=== PATIENT | female | born 1955 | race Asian ===

== ENCOUNTER → 2021-07-07 09:34 | Outpatient (CLI) | payer OTHER, SELFPAY ==
[2021-07-07 12:51] LABS: COVID19 -Nasal RAPID Negative (Negative)
== END ==
PROVIDERS: PCP Student in an Organized Health Care Education/Training Program; Visit Provider Family Medicine Sleep Medicine
DX: Z20.822 Contact with and (suspected) exposure to COVID-19 (principal)
CPT/HCPCS: 87635; C9803

== ENCOUNTER 2021-07-10 09:17 | Day surgery (SDC) | payer OTHER, SELFPAY ==
--- NOTE | 2021-07-10 | PATH_ITS ---
[facility] Accession Number: [id number] No. of containers..01 Tissue . 01 Material submitted: . colon - DESCENDING COLON POLYP . 02 Diagnosis: Descending Colon Polyp, Biopsy: Small fragment of colonic mucosa with cautery artifact. No neoplasm identified. MRV 07/13/2021 1047 Local . 02 Electronically signed: . Juan Luis Greenberg MD, PhD, Pathologist NPI- [id number] . 01 Gross description: . DESCENDING COLON POLYP: Received in formalin is 1 fragment(s) of headley, soft tissue measuring 0.1 x 0.1 x 0.1 cm submitted entirely in 1 cassette(s) /FERNANDA 07/11/20211955 Local . 02 Pathologist provided ICD-10: K63.5 . 02 CPT . 151460 Specimen Comment: A courtesy copy of this report has been sent to [phone] Performed at: 01 [facility] [address], [place], [place] [id number] MD Anthony Manzanares MD Phone: [phone] Performed at: 02 [facility] [address] [place], [place] [id number] MD Lisbet Greenberg MD Phone: [phone]
[2021-07-10 10:09] VITALS: BP 121/77; PULSE 81; RESP 18; TEMP 36.8; O2SAT 100; BMI 30.2
[2021-07-10] MEDS: SODIUM CHLORIDE 0.9% 1,000 ML 150 ML IV (10:21)
--- NOTE | 2021-07-10 10:37 | PM.HP.1 ---
History of Present Illness History of Present Illness Date Patient Seen: 07/10/21 Time Patient Seen: 10:37 Chief complaint: COLONOSCOPY Narrative: Personal history of colon polyps Patient History Family & Social History Social History: household members spouse Tobacco & Substance use: Smoking Status Never smoker alcohol intake frequency a few times a month Substance Use Type does not use Meds Home Medications and Allergies Home Medications Medication Instructions Recorded Confirmed Type levothyroxine 100 mcg tablet 100 mcg PO DAILY 07/10/21 07/10/21 History (Synthroid) Allergies Allergy/AdvReac Type Severity Reaction Status Date / Time No Known Drug Allergies Allergy Verified 07/07/21 16:46 Review of Systems Review of Systems ROS: Yes All systems reviewed with the patient and are negative except as otherwise documented Exam Vital Signs (past 8 hours): - 07/10/21 10:09 Temperature 98.2 F Pulse Rate 81 Respiratory Rate 18 Blood Pressure 121/77 Pulse Oximetry 100 Oxygen Delivery Method Room Air Const General: cooperative and comfortable Orientation: alert HENMT Head: normocephalic Ears: external ears normal Nose: external nose normal Face and sinus: normal facial exam Mouth: oral mucosae normal Eyes General: appearance normal, both eyes and all related structures Neck Neck: normal visual inspection Chest Chest: normal inspection of the chest Resp Effort & Inspection: normal respiratory effort Cardio Rate: regular rate GI Inspection: normal to inspection Skin General: no rashes or lesions noted and No jaundice Neuro General: patient alert and moves all extremities Cognition: normal cognition Speech: speech normal Extrem General: no pedal edema Psych Appearance: grossly normal Assessment & Plan Assessment & Plan narrative: 66-year-old female with personal history of unknown histology colon polyps. Colonoscopy is planned for today. Time Spent With Patient Critical Care time: I spent a total of [] minutes of critical care time on this patient's care today; this time is exclusive of procedural time.
--- NOTE | 2021-07-10 10:39 | PM.PREOP ---
Pre-operative Note COVID-19 COVID-19 status: Negative Result date/Date tested (Pos, Neg/Pending): 07/07/21 Criteria for continued procedure: Possibility delay results in more complex future surgery or treatment Interval Note History & Physical reviewed/Exam performed by Physician: Yes Changes to H&P: No ASA Class (for procedural sedation): II
--- NOTE | 2021-07-10 11:33 | PM.OP.COLON ---
Operative Date/Time/Diagnoses Date of procedure: 07/10/21 Time of procedure: 11:33 Pre-op diagnosis: Personal history of colon polyps Post-op diagnosis: same Procedure & Clinicians Study performed: Colonoscopy with hot snare polypectomy Same procedure as scheduled: Yes Indications: Personal history of colon polyps Surgeon: Rao Boles Procedure Notes SCOAP/Timeout: Done Procedure in detail: After the risks and benefits were explained, written and verbal informed consent was obtained. The patient was brought into the procedure room and placed into the left lateral decubitus position. Please see nurse director of infection control notes for sedation details. Digital rectal examination was accomplished. The scope was introduced into the patient and advanced under direct visualization to the cecum as identified by the appendiceal orifice and ileocecal valve. The scope was slowly withdrawn to carefully examine the mucosa for any defects or lesions. Comprehensive imaging was accomplished throughout the rectum including the dentate line. The colon was decompressed, the scope was then removed from the patient who tolerated the procedure well. Pediatric colonoscope Bowel prep adequate Scope withdrawal time: 9 minutes Sedation minutes: 17 Complications: none Impression: There was a 6-7 mm sessile polyp in the descending colon removed with hot snare. No other significant pathology was appreciated throughout. Grade 2 hemorrhoids were apparent nonbleeding nonthrombosed. Endoscopic diagnosis 1. Colon polyp 2. Grade 2 hemorrhoids Post-procedure Recommendations: Colonoscopy in 5 years Plan for aftercare: 1. Await histopathology 2. Repeat colonoscopy 5 years. Disposition: PACU
[2021-07-10 11:36] VITALS: BP 97/65; PULSE 77; RESP 11; TEMP 36.4; O2SAT 97
[2021-07-10 11:41] VITALS: BP 102/69; PULSE 74; RESP 12; O2SAT 98
[2021-07-10 11:46] VITALS: BP 111/75; PULSE 64; RESP 13; O2SAT 100
[2021-07-10 11:51] VITALS: BP 116/75; PULSE 72; RESP 12; TEMP 36.4; O2SAT 100
[2021-07-10 11:58] VITALS: BP 127/73; PULSE 64; RESP 12; O2SAT 100
== END 2021-07-10 12:18 | disposition home or self-care (01) ==
LOC: ENDO 09:18
PROVIDERS: PCP Student in an Organized Health Care Education/Training Program; Referring Provider Internal Medicine Gastroenterology; Visit Provider Internal Medicine Gastroenterology
PROC: 0DJD8ZZ Inspection of Lower Intestinal Tract, Via Natural or Artificial Opening Endoscopic (ICD-10-PCS; CPT 45378; principal; 2021-07-10 10:30)
DX: Z12.11 Encounter for screening for malignant neoplasm of colon (principal); Z86.010 Personal history of colon polyps; K64.1 Second degree hemorrhoids; K63.5 Polyp of colon
CPT/HCPCS: 45385; J2704

== ENCOUNTER 2024-01-09 12:26 | Day surgery (SDC) | payer MEDICARE, OTHER, SELFPAY ==
[2024-01-09] MEDS: LACTATED RINGERS 1,000 ML 42 ML IV (12:50)
[2024-01-09 12:51] VITALS: BP 130/83; PULSE 93; RESP 16; TEMP 36.8; O2SAT 100
--- NOTE | 2024-01-09 13:21 | PM.HP.1 ---
History of Present Illness History of Present Illness Date Patient Seen: 01/09/24 Time Patient Seen: 13:21 Chief complaint: Screening Colonoscopy Narrative: Jenelle is a 68-year-old woman who is here for a colonoscopy. Her last colonoscopy was in [address] Boles. [facility] Social History household members: spouse Smoking Status: Never smoker alcohol intake: current Meds Home Medications and Allergies Home Medications Medication Instructions Recorded Confirmed Type levothyroxine 100 mcg tablet 100 mcg PO DAILY 07/10/21 01/09/24 History (Synthroid) Allergies Allergy/AdvReac Type Severity Reaction Status Date / Time No Known Drug Allergies Allergy Verified 07/07/21 16:46 Exam Vital Signs (past 8 hours): - 01/09/24 12:51 Temperature 98.2 F Pulse Rate 93 H Respiratory Rate 16 Blood Pressure 130/83 Pulse Oximetry 100 Oxygen Delivery Method Room Air Oxygen Delivery Method Room Air Const General: No acute distress Resp Effort & Inspection: normal respiratory effort Assessment & Plan Assessment and plan (1) Colon cancer screening: Status: Acute Plan We reviewed the risks and benefits of colonoscopy for colon cancer screening and she would like to proceed. Time-Based Coding :: [TOTAL MINUTES] spent with patient and on the chart (including review of chart, obtaining history, exam, reviewing outside data, placing orders, documenting exam and treatment plan, and counseling patient) on [DATE].
[2024-01-09 13:53] VITALS: BP 96/75; PULSE 81; RESP 14; TEMP 36.2; O2SAT 96
--- NOTE | 2024-01-09 13:56 | PM.OP.COLON ---
Operative Date/Time/Diagnoses Date of procedure: 01/09/24 Time of procedure: 13:56 Pre-op diagnosis: Colon cancer screening Post-op diagnosis: same Procedure & Clinicians Study performed: Colonoscopy Same procedure as scheduled: Yes Surgeon: Darrion Clancy Procedure Notes Procedure in detail: Surgeon: Darrion Clancy MD Anesthesia: Emma Enriquez MD Procedure: The patient was brought to the endoscopy suite, placed in left lateral decubitus position. The patient was connected to monitoring devices. A time-out was performed. Sedation was administered. Once the patient was adequately sedated, a digital rectal exam was performed and was normal. The scope was then inserted and advanced to the cecum where the appendiceal orifice was identified and photographed. The scope was then slowly withdrawn over greater than 6 minutes. The mucosa was thoroughly inspected. No abnormalities were found. The scope was retroflexed in the rectum. The scope was straightened and removed. The patient was awakened and brought to recovery. Scope withdrawal time: 6 minutes Sedation time: 16 minutes EBL: 0 Findings: Normal colon Post-procedure Recommendations: Colonoscopy in 10 years Disposition: PACU
[2024-01-09 13:57] VITALS: BP 90/63; PULSE 89; RESP 21; O2SAT 97
[2024-01-09 14:02] VITALS: BP 111/64; PULSE 82; RESP 14; O2SAT 96
[2024-01-09 14:04] VITALS: BP 115/74; PULSE 75; RESP 14; TEMP 36.2; O2SAT 96
== END 2024-01-09 14:18 | disposition home or self-care (01) ==
PROVIDERS: PCP Student in an Organized Health Care Education/Training Program; Referring Provider Surgery; Visit Provider Surgery
PROC: 0DJD8ZZ Inspection of Lower Intestinal Tract, Via Natural or Artificial Opening Endoscopic (ICD-10-PCS; CPT 45378; principal; 2024-01-09 13:30)
DX: Z12.11 Encounter for screening for malignant neoplasm of colon (principal)
CPT/HCPCS: G0105; J2704